=== PATIENT | female | born 1985 | race Caucasian/White ===

== ENCOUNTER 2016-11-27 12:49 | Emergency (ER) | payer BC ==
[~2016-11-27] VITALS: Wt 70.0 kg
[~2016-11-27 12:49] MED LIST: ERYT1OIN6 RIGHT EYE; IBUP-1542 PO; LORA10CA PO; MECL12.574 PO; PREN-29 PO
[2016-11-27] MEDS ORDERED: ACET500C5 PO (14:21)
[2016-11-27] MEDS ORDERED: SODI30SP2 NS (14:21)
--- NOTE | 2016-11-27 14:48 | ERD ---
ER Documentation Chief Complaint Date/Time DATE: 11/27/16 TIME: 14:44 Chief Complaint 4 days ago cough fever and sore throat. no stridor or sob noted HPI Patient is a 31-year-old female who is , with body aches, cough, sore throat and congestion. She states that she has had these symptoms for 4 days. Complains of a productive cough. Tactile fevers at home. She has only been taking Tylenol for her symptoms. States her last normal menstrual period was . She denies any pelvic pain, vaginal bleeding or abdominal pain, nausea , vomiting or diarrhea. She denies headache or dizziness. She denies leg pain or swelling or recent travel. She denies shortness of breath, chest pain or difficulty breathing. She states that multiple people at work have had similar symptoms. Denies recent surgeries. ROS All systems reviewed and are negative except as per history of present illness. Medications Home Meds Active Scripts Sodium Chloride (Saline Nasal [place]) 30 Ml [place], 30 ML NS BID for 14 Days, SPRAY Prov:SIMON PELAYO PA-C 11/27/16 Acetaminophen* (Tylophen*) 500 Mg Capsule, 1 CAP PO Q6H Y for PAIN AND OR ELEVATED TEMP, #20 CAP Prov:SIMON PELAYO PA-C 11/27/16 Ibuprofen* (Motrin*) 600 Mg Tab, 600 MG PO Q6, #30 TAB Prov:RANDY MORRISSEY PA-C 09/09/16 Meclizine Hcl* (Antivert*) 12.5 Mg Tab, 12.5 MG PO Q6H Y for DIZZINESS, #20 TAB Prov:RANDY MORRISSEY PA-C 09/09/16 Loratadine* (Claritin*) 10 Mg Capsule, 10 MG PO DAILY, #20 CAP Prov:MARS GAONA PA-C 06/03/16 Erythromycin (Erythromycin Opth) 3.5 Gm Oint..gm., 1 APPLIC RIGHT EYE QID for 7 Days, EA Prov:MARS GAONA PA-C 06/03/16 Ibuprofen* (Motrin*) 600 Mg Tab, 600 MG PO Q6, #20 TAB Prov:WENDY SAMPSON PA-C 11/25/15 Reported Medications Vit-Fe Fumarate-FA* ([place] Tablet*) 1 Tab Tablet, 1 TAB PO DAILY, TAB 08/22/14 Allergies Allergies: Coded Allergies: No Known Allergy (Verified , 02/12/15) PMhx/Soc History of Surgery: Yes (heart surgery) Anesthesia Reaction: No Hx Neurological Disorder: No Hx Respiratory Disorders: No Hx Cardiac Disorders: No Hx Psychiatric Problems: No Hx Miscellaneous Medical Probl: No Hx Alcohol Use: No Hx Substance Use: No Hx Tobacco Use: No FmHx Family History: No coronary disease, No diabetes, No other Physical Exam Vitals Vital Signs Date Time Temp Pulse Resp B/P Pulse Ox O2 Delivery O2 Flow Rate FiO2 11/27/16 13:03 99.5 89 20 118/68 99 Physical Exam GENERAL: Well-developed, well-nourished female. Appears in mild distress EYES: Pupils are equally reactive bilaterally. EOMs grossly intact. No conjunctival erythema. ENT: Moist mucous membranes. No uvula deviation. No kissing tonsils. No exudates. TM clear with no erythema or drainage. No mastoid tenderness. Nontender to peanut and tragus NECK: Supple. No lymphadenopathy or thyromegaly. No meningismus. negative kernig. negative brudinski. LUNG: Clear to auscultation bilaterally. No rhonchi, wheezing, rales or coarse breath sounds. HEART: Regular rate and rhythm. No murmurs, rubs or gallops. Extremities: Equal pulses bilaterally. No peripheral clubbing, cyanosis or edema. No unilateral leg swelling. NEUROLOGIC: Alert and oriented. Moving all four extremities. 5/5 strength in all extremities. Normal speech. Steady gait. SKIN: Normal color. Warm and dry. No rashes or lesions. Capillary refill < 2 seconds Procedures/MDM ER COURSE: I kept the patient and/or family informed of laboratory and diagnostic imaging results throughout the emergency room course. MEDICAL DECISION MAKING: This is a female who presents with cough, runny nose, sore throat and body aches. Vital signs were reviewed. Patient is afebrile. Patient is not hypoxic. Temperature is 99.5, blood pressure 118/68 with an O2 sat of 99. Patient likely has URI of viral etiology. Low suspicion for pneumonia, PE, pneumothorax, ACS, epiglottitis, obstruction, TB, pertussis, meningitis, sepsis. I do not think a chest x-ray is warranted at this time as patient's lung examination is within normal limits, normal O2 and does not show signs of respiratory distress and is afebrile. Low suspicion for peritonsillar abscess, strep pharyngitis, mononucleosis, dental abscess. DISCHARGE: At this time, patient is stable for discharge and outpatient management with no new complaints during the ER course. Patient was sent home with Tylenol, nasal saline rinses and a note for work.. Patient will be discharged home with instructions to recheck for new or worsening symptoms such as fever, nausea, weakness, LOC and to follow up with primary care in the next 1-2 days. Patient was advised to return to the ER for any new or worsening symptoms. Plan was discussed and patient and/or family understands and agrees. Home instructions were given. Departure Diagnosis: Primary Impression: URI (upper respiratory infection) URI type: unspecified URI Qualified Code: J06.9 - Upper respiratory tract infection, unspecified type Condition: Stable Patient Instructions: Preventing Common Respiratory Infections Additional Instructions: Call your primary care doctor TOMORROW for an appointment during the next 1-2 days.See the doctor sooner or return here if your condition worsens before your appointment time. SIMON PELAYO PA-C Nov 27, 2016 14:48
== END 2016-11-27 14:27 | disposition home or self-care (01) ==
LOC: E/R 12:49
DX: J06.9 Acute upper respiratory infection, unspecified (principal)
CPT/HCPCS: 99283

== ENCOUNTER 2016-12-13 12:34 | Emergency (ER) | payer BC ==
[~2016-12-13] VITALS: Ht 177.8 cm; Wt 82.0 kg
[~2016-12-13 12:34] MED LIST changes: +ACET500C5 PO; +SODI30SP2 NS
[2016-12-13 12:40] VITALS: Ht 177.8 cm; Wt 82.0 kg
[2016-12-13 14:28] LABS: URINE BLOOD (Dip) POC Negative (NEGATIVE)
[2016-12-13 14:34] LABS: BASOPHILS % 0.4 % (0.0-2.0); EOSINOPHILS # 0.2 10^3/ul (0.0-0.5); EOSINOPHILS % 1.5 % (0.0-7.0); HEMATOCRIT 36.7 % (37.0-47.0); HEMOGLOBIN 12.6 g/dl (12.0-16.0); LYMPHOCYTES # 2.1 10^3/ul (0.8-2.9); LYMPHOCYTES % 20.7 % (15.0-51.0); MEAN CORPUSCULAR HEMOGLOBIN 30.8 pg (29.0-33.0); MEAN CORPUSCULAR HGB CONC 34.4 g/dl (32.0-37.0); MEAN CORPUSCULAR VOLUME 89.7 fl (82.0-101.0); MEAN PLATELET VOLUME 10.3 fl (7.4-10.4); MONOCYTE # 0.8 10^3/ul (0.3-0.9); MONOCYTES % 7.9 % (0.0-11.0); NEUTROPHIL # 7.1 10^3/ul (1.6-7.5); NEUTROPHILS % 69.5 % (39.0-77.0); PLATELET COUNT 246 10^3/UL (140-440); RED CELL DISTRIBUTION WIDTH 12.7 % (11.5-14.5); UNCORRECTED WBC 10.2 10^3/ul (4.8-10.8); WHITE BLOOD COUNT 10.2 10^3/ul (4.8-10.8)
[2016-12-13 14:39] LABS: CONDITION 1
--- NOTE | 2016-12-13 15:18 | ERD ---
ER Documentation Chief Complaint Date/Time DATE: 12/13/16 TIME: 15:14 Chief Complaint VAG BLEED TODAY , 8 WEEKS PREG , LMP 10/10/16 HPI This is a 31-year-old female, A2, who is currently and started having vaginal bleeding today. Patient states she is currently 8 weeks with last menstrual period 10/10/2016. Patient states she started having light pink spotting this morning when she wipes. Denies pelvic pain or cramping. No heavy bleeding or clots. Denies dysuria or hematuria. Patient states she is currently on antibiotics for urinary tract infection. Has had one miscarriage in the past and one elective . No fevers or chills. Has not had any complications with delivery. No history of preeclampsia. Patient is unsure of her [employer]'s name. ROS All systems reviewed and are negative except as per history of present illness. Medications Home Meds Active Scripts Sodium Chloride (Saline Nasal [place]) 30 Ml [place], 30 ML NS BID for 14 Days, SPRAY Prov:SIMON PELAYO PA-C 11/27/16 Acetaminophen* (Tylophen*) 500 Mg Capsule, 1 CAP PO Q6H Y for PAIN AND OR ELEVATED TEMP, #20 CAP Prov:SIMON PELAYO PA-C 11/27/16 Ibuprofen* (Motrin*) 600 Mg Tab, 600 MG PO Q6, #30 TAB Prov:RANDY MORRISSEY PA-C 09/09/16 Meclizine Hcl* (Antivert*) 12.5 Mg Tab, 12.5 MG PO Q6H Y for DIZZINESS, #20 TAB Prov:RANDY MORRISSEY PA-C 09/09/16 Loratadine* (Claritin*) 10 Mg Capsule, 10 MG PO DAILY, #20 CAP Prov:MARS GAONA PA-C 06/03/16 Erythromycin (Erythromycin Opth) 3.5 Gm Oint..gm., 1 APPLIC RIGHT EYE QID for 7 Days, EA Prov:MARS GAONA PA-C 06/03/16 Ibuprofen* (Motrin*) 600 Mg Tab, 600 MG PO Q6, #20 TAB Prov:WENDY SAMPSON PA-C 11/25/15 Reported Medications Vit-Fe Fumarate-FA* ([place] Tablet*) 1 Tab Tablet, 1 TAB PO DAILY, TAB 08/22/14 Allergies Allergies: Coded Allergies: No Known Allergy (Verified , 02/12/15) PMhx/Soc Medical and Surgical Hx: pt denies Medical Hx, pt denies Surgical Hx History of Surgery: Yes (heart surgery) Anesthesia Reaction: No Hx Neurological Disorder: No Hx Respiratory Disorders: No Hx Cardiac Disorders: No Hx Psychiatric Problems: No Hx Miscellaneous Medical Probl: No Hx Alcohol Use: No Hx Substance Use: No Hx Tobacco Use: No Smoking Status: Never smoker Physical Exam Vitals Vital Signs Date Time Temp Pulse Resp B/P Pulse Ox O2 Delivery O2 Flow Rate FiO2 12/13/16 12:40 98.1 86 18 131/60 99 Physical Exam Const: Alert, no acute distress Head: Atraumatic Eyes: Normal Conjunctiva ENT: Normal External Ears, Nose and Mouth. Neck: Full range of motion..~ No meningismus. Resp: Clear to auscultation bilaterally Cardio: Regular rate and rhythm, no murmurs Abd: Soft, non tender, non distended. Normal bowel sounds Skin: No petechiae or rashes Back: No midline or flank tenderness Ext: No cyanosis, or edema Neur: Awake and alert Psych: Normal Mood and Affect Result Diagram: 12/13/16 1422 Results 24 hrs Laboratory Tests Test 12/13/16 14:22 12/13/16 14:31 Basophils # 0.010^3/ul Basophils % 0.4% Eosinophils # 0.210^3/ul Eosinophils % 1.5% Hematocrit 36.7% Hemoglobin 12.6g/dl Lymphocytes # 2.110^3/ul Lymphocytes % 20.7% Mean Corpuscular Hemoglobin 30.8pg Mean Corpuscular Hemoglobin Concent 34.4g/dl Mean Corpuscular Volume 89.7fl Mean Platelet Volume 10.3fl Monocytes # 0.810^3/ul Monocytes % 7.9% Neutrophils # 7.110^3/ul Neutrophils % 69.5% Nucleated Red Blood Cells # 0.010^3/ul Nucleated Red Blood Cells % 0.0/100WBC Platelet Count 30091^3/UL Red Blood Count 4.1010^6/ul Red Cell Distribution Width 12.7% White Blood Count 10.210^3/ul Bedside Urine Blood Negative Bedside Urine Glucose (UA) Negative Bedside Urine Ketones (LAB) Negative Bedside Urine Leukocyte Esterase (L Negative Bedside Urine Nitrite (LAB) Negative Bedside Urine Protein (LAB) Negative Bedside Urine pH (LAB) 7.0 Procedures/MDM ED COURSE: The patient was stable throughout ED course. I kept the patient and/or family informed of laboratory and diagnostic imaging results throughout the ED course. Laboratory CBC no significant infection or anemia Beta-hCG Type and Rh factor O positive Urine dip negative Imaging OB ultrasound Patient: JEFFERSON PHILLIPS : 1985 Age: 31 Sex: F MR #: [id number] DOS: 12/13/16 1407 Ordering MD: LAURA WHITING NP Location: [facility] Room/Bed: PROCEDURE: First trimester obstetrical ultrasound. CLINICAL INDICATION: , pelvic pain TECHNIQUE: Transabdominal mason scale and color Doppler ultrasound of the uterus . COMPARISON: OB ultrasound 02/12/2015 FINDINGS: A single intrauterine gestation is present within the uterine fundus. No evidence of extrauterine gestation. Mean sac diameter: 324 cm [place]-rump length: 2.41 cm heart rate: 185 Beats per minute No evidence of subchorionic hemorrhage. Normal appearance right ovary. Left ovary not identified. Free fluid: None. IMPRESSION: Single intrauterine gestation with an estimated gestational age of 9 weeks 1 days by ultrasound criteria. MDM: This is a 31-year-old female presenting to emergency department for vaginal bleeding while . Patient states her last menstrual period was 10/10/2016. Patient states she has had light pink spotting with wiping twice today. No heavy bleeding or clots. Patient is A2. CBC unremarkable for significant anemia or infection. Urine is negative for infection. OB ultrasound reviewed by radiologist shows single intrauterine gestation with an estimated gestation age of 9 weeks 1 day by ultrasound criteria. Patient denies pelvic cramping. Low suspicion for spontaneous , tubo-ovarian abscess, uterine fibroid or pelvic inflammatory disease. Patient is appropriate for outpatient management and instructed to follow-up with [employer] in the next 2-3 days for reassessment. Instructed patient to return to ED for any increased bleeding, high fever, pelvic cramping or any new or worsening symptoms. Patient verbalizes understanding. All questions answered at discharge. Departure Diagnosis: Primary Impression: Vaginal bleeding in patient at less than 20 weeks gestation Condition: Stable JOHANNE,LAURA R. [employer]PER[employer] EDGING Dec 13, 2016 15:18
--- NOTE | 2016-12-13 15:27 | RADRPT ---
PROCEDURE: First trimester obstetrical ultrasound. CLINICAL INDICATION: , pelvic pain TECHNIQUE: Transabdominal mason scale and color Doppler ultrasound of the uterus . COMPARISON: OB ultrasound 02/12/2015 FINDINGS: A single intrauterine gestation is present within the uterine fundus. No evidence of extrauterine gestation. Mean sac diameter: 324 cm [place]-rump length: 2.41 cm heart rate: 185 Beats per minute No evidence of subchorionic hemorrhage. Normal appearance right ovary. Left ovary not identified. Free fluid: None. IMPRESSION: Single intrauterine gestation with an estimated gestational age of 9 weeks 1 days by ultrasound chris oscar. RPTAT: AADD .Zackary Tracy MD, MD Date Time Electronically viewed and signed by .Zackary Tracy MD, on 12/13/2016 15:26 .B/
== END 2016-12-13 15:46 | disposition home or self-care (01) ==
LOC: FTE 12:34
DX: O20.9 Hemorrhage in early pregnancy, unspecified (principal); R10.2 Pelvic and perineal pain; Z3A.09 9 weeks gestation of pregnancy
CPT/HCPCS: 36415; 76801; 81003; 84702; 85025; 86900; 86901; Z7502

== ENCOUNTER 2017-04-26 13:02 | Emergency (ER) | payer BC ==
[~2017-04-26] VITALS: Ht 177.8 cm; Wt 86.0 kg
[2017-04-26 13:09] VITALS: Ht 177.8 cm; Wt 86.0 kg
--- NOTE | 2017-04-26 14:07 | QN ---
Documentation Comment iup 28 weeks URI symptoms vss exam wnl a./p iup 28 weeks to er per OB for vianeyal KELI KERN MD Apr 26, 2017 14:07
[2017-04-26] MEDS ORDERED: ACET500C5 PO (14:36)
[2017-04-26] MEDS ORDERED: AMO500 PO (14:37)
--- NOTE | 2017-04-26 14:42 | ERD ---
ER Documentation Chief Complaint Date/Time DATE: 04/26/17 TIME: 14:38 Chief Complaint sore throat , lt ear pain , 28 weeks preg , cleared by ob triage HPI Patient is a 31-year-old female, 28 weeks , , who presents to the of throat pain and left ear pain. Patient states she has had throat pain now for a week. Patient does report a dry cough. Patient states this morning she woke up with left ear pain. She denies any active bleeding or discharge. Patient denies any trismus. Patient denies any fevers, chills, nausea, vomiting , abdominal pain, vaginal bleeding or excessive vaginal discharge. Patient denies any recent travel. No sick contacts. Patient was cleared by OB team prior to arrival to ED. ROS All systems reviewed and are negative except as per history of present illness. Medications Home Meds Active Scripts Amoxicillin* (Amoxicillin*) 500 Mg Cap, 500 MG PO BID for 10 Days, CAP Prov:RICKIE ZARAGOZA PA-C 04/26/17 Acetaminophen* (Tylophen*) 500 Mg Capsule, 1 CAP PO Q6H Y for PAIN AND OR ELEVATED TEMP, #20 CAP Prov:RICKIE ZARAGOZA PA-C 04/26/17 Reported Medications Vit-Fe Fumarate-FA* ([place] Tablet*) 1 Tab Tablet, 1 TAB PO DAILY, TAB 08/22/14 Discontinued Scripts Sodium Chloride (Saline Nasal [place]) 30 Ml [place], 30 ML NS BID for 14 Days, SPRAY Prov:SIMON PELAYO PA-C 11/27/16 Acetaminophen* (Tylophen*) 500 Mg Capsule, 1 CAP PO Q6H Y for PAIN AND OR ELEVATED TEMP, #20 CAP Prov:SIMON PELAYO PA-C 11/27/16 Ibuprofen* (Motrin*) 600 Mg Tab, 600 MG PO Q6, #30 TAB Prov:RANDY MORRISSEY PA-C 09/09/16 Meclizine Hcl* (Antivert*) 12.5 Mg Tab, 12.5 MG PO Q6H Y for DIZZINESS, #20 TAB Prov:RANDY MORRISSEY PA-C 09/09/16 Loratadine* (Claritin*) 10 Mg Capsule, 10 MG PO DAILY, #20 CAP Prov:MARS GAONA PA-C 06/03/16 Erythromycin (Erythromycin Opth) 3.5 Gm Oint..gm., 1 APPLIC RIGHT EYE QID for 7 Days, EA Prov:CANDELARIADUCOWEN Snehal MUNOZ 06/03/16 Ibuprofen* (Motrin*) 600 Mg Tab, 600 MG PO Q6, #20 TAB Prov:WENDY SAMPSON TAMMY 11/25/15 Allergies Allergies: Coded Allergies: No Known Allergy (Verified , 02/12/15) PMhx/Soc Medical and Surgical Hx: pt denies Medical Hx, pt denies Surgical Hx History of Surgery: No Anesthesia Reaction: No Hx Neurological Disorder: No Hx Respiratory Disorders: No Hx Cardiac Disorders: No Hx Psychiatric Problems: No Hx Miscellaneous Medical Probl: No Hx Alcohol Use: No Hx Substance Use: No Hx Tobacco Use: No FmHx Family History: No diabetes Physical Exam Vitals Vital Signs Date Time Temp Pulse Resp B/P Pulse Ox O2 Delivery O2 Flow Rate FiO2 04/26/17 13:09 98.6 110 18 131/77 98 Physical Exam GENERAL: Well-developed, well-nourished [place]. Appears in no acute distress. Speaking in full sentences HEAD: Normocephalic, atraumatic. No deformities or ecchymosis. EYE: Pupils equal, round, and reactive to light. EOMs intact. No conjunctival erythema. No eye discharge. ENT: External ear without any masses or tenderness. Auditory canals clear bilaterally. Left tympanic membrane appears erythematous and bulging. Right tympanic membrane appears normal, nonerythematous, nonbulging. Nasal mucosa pink with no discharge. Oropharynx is edematous without any tonsillar erythema or exudates. No uvula deviation. No kissing tonsils. Nontender palpation of bilateral mastoid processes. NECK: Supple. No meningismus. Normal ROM of the neck. LUNG: Clear to auscultation bilaterally. No rhonchi, wheezing, rales or coarse breath sounds. HEART: Regular rate and rhythm. No murmurs, rubs or gallops. BACK: No midline tenderness. EXTREMITES: Equal pulses bilaterally. No peripheral clubbing, cyanosis or edema. No unilateral leg swelling. NEUROLOGIC: Alert and oriented to person, place and time. Moving all four extremities. 5/5 strength in all extremities. Normal speech. Steady gait. SKIN: Normal color. Warm and dry. No rashes or lesions. Procedures/MDM MEDICAL DECISION MAKING: This is a 31-year-old female who presents to the ED with concerns of throat pain, ear pain and a cough. Patient was cleared by OB team prior to arrival to the ED. Vital signs were reviewed. Patient was afebrile. Patient was not hypoxic. ENT exam revealed findings consistent with left acute otitis media. Exam was normal. Given these findings, the patient's presentation is most consistent with acute otitis media and viral URI. I have a much lower clinical concern for pneumonia, meningitis, sinusitis, mastoiditis, strep pharyngitis, epiglottitis or peritonsillar abscess. PRESCRIPTIONS: Amoxicillin, Tylenol DISCHARGE: At this time, patient is stable for discharge and outpatient management. Supportive therapies such as OTC throat lozenges, salt water gurgles, popsicles and jello discussed. I have instructed the patient to follow-up with his/her primary care physician in 1-2 days. I have instructed the patient to promptly return to the ER for any new or worsening symptoms including increased pain, swelling, fever, nausea, vomiting, weakness or difficulty breathing. The patient and/or family expressed understanding of and agreement with this plan. All questions were answered. Home care instructions were provided. Departure Diagnosis: Primary Impression: Acute otitis media Otitis media type: unspecified Laterality: unspecified laterality Qualified Code: H66.90 - Acute otitis media, unspecified laterality, unspecified otitis media type Additional Impression: URI (upper respiratory infection) URI type: unspecified URI Qualified Code: J06.9 - Upper respiratory tract infection, unspecified type Condition: Stable Patient Instructions: Otitis Media, Abx Tx (Adult) Additional Instructions: Call your primary care doctor TOMORROW for an appointment during the next 1-2 days.See the doctor sooner or return here if your condition worsens before your appointment time. RICKIE ZARAGOZA PA-C Apr 26, 2017 14:41
== END 2017-04-26 15:10 | disposition home or self-care (01) ==
LOC: FTE 13:02
DX: O99.513 Diseases of the respiratory system complicating pregnancy, third trimester (principal); H66.92 Otitis media, unspecified, left ear; J06.9 Acute upper respiratory infection, unspecified; O99.89 Other specified diseases and conditions complicating pregnancy, childbirth and the puerperium; Z3A.28 28 weeks gestation of pregnancy
CPT/HCPCS: 99283

== ENCOUNTER 2017-05-23 17:05 | Outpatient (CLI) | payer BC ==
[~2017-05-23] VITALS: Ht 177.8 cm; Wt 86.9 kg
[~2017-05-23 17:05] MED LIST changes: +AMO500 PO; -ERYT1OIN6 RIGHT EYE; -IBUP-1542 PO; -LORA10CA PO; -MECL12.574 PO; -SODI30SP2 NS
[2017-05-23 17:17] VITALS: BP 129/71; PULSE 95; Ht 177.8 cm; Wt 86.9 kg
--- NOTE | 2017-05-23 19:03 | RADRPT ---
PROCEDURE: Obstetrical ultrasound for biophysical profile CLINICAL INDICATION: Biophysical profile. . TECHNIQUE: Obstetrical ultrasound of the uterus for biophysical profile. Transabdominal views are obtained. COMPARISON: 12/13/2016 FINDINGS: Single intrauterine gestation. Presentation: Cephalic. Placenta: Posterior No evidence of placental abruption. No evidence of placenta previa. breathing movement = 2/2 tone = 2/2 motion = 2/2 ELÍAS = 2/2 ELÍAS = 9.7 cm heart rate: 138 beats per minute IMPRESSION: Single intrauterine gestation. Biophysical profile 06/01 RPTAT: AADD .Zackary Tracy MD, MD Date Time Electronically viewed and signed by .Zackary Tracy MD, on 05/23/2017 19:02 .B/
--- NOTE | 2017-05-23 19:40 | PN ---
Triage Information Date/Time May 23, 2017 Weeks of Gestation 32w 3d : 5 Para: 4 Diabetes: none Hypertention: none Additional information Came in after having a single episode of upper abdominal pain that radiated to the back. There have been no recurrences. No bleeding or leaking. + FM. PMHx: none. PSHx: C/S x 1. POBHx: x 3. C/S x 1. NKDA. Objective Vital Signs Date Time Temp Pulse Resp B/P Pulse Ox O2 Delivery O2 Flow Rate FiO2 05/23/17 17:17 98.2 95 129/71 Room Air Heart Rate Comments Baseline 130-140's with accels to 160 bpm. No decels. No UC's. Contractions: None Results/Medications Imaging Results BPP 8/8. ELÍAS 9.7 cm. VTX. Assessment/Plan A: IUP at 32w 3. False labor. P: Pt reassured that she probably had a Lionel-Garg contraction as they can be very strong, although they usually aren't. D/C home. Maintain hydration. JOSE HARTLEY MD May 23, 2017 19:40
--- NOTE | 2017-05-23 20:12 | TRIAGE ---
OB Triage Datetime Report Generated by CPN: 05/23/2017 20:12 Datetime: 05/23/2017 19:21 Stage of : OB Triage Time of Arrival: 05/23/2017 16:59 EGA: 32.3 Arrived From: Home Chief Complaint: Abdominal pain x 1 at home Movement: Present Contractions: Occasional Rupture of Membranes: Denies Vaginal Bleeding: None Vaginal Discharge: Denies Recent Sexual Intercouse: Denies Abdominal Trauma: Not Applicable Patient Complaints: Other Time Provider Notified: 05/23/2017 17:48 Provider Notified: reiche Initial Plan: bpp Labor Evaluation Frequency: 0 Monitor Mode: External Resting Tone [place]: Relaxed Contraction Comments: Pt denies feeling cramping, ucs. Abdomen remains soft to palpation Heart Rate FHR Baseline Rate: 140 Monitor Mode: External US Variability: Moderate 6-25 bpm Accelerations: 15X15 Decelerations: Variable Category: Category II Comments: Appropriate for GA Datetime: 05/23/2017 18:59 Labor Evaluation Frequency: 0 Monitor Mode: External Duration (sec)2399: 0 Pattern: Normal: <= 5 Contractions in 10 Minutes Resting Tone [place]: Relaxed Heart Rate FHR Baseline Rate: 135 Monitor Mode: External US FHR Baseline Changes: No Baseline Change Variability: Moderate 6-25 bpm Accelerations: 15X15 Decelerations: None Category: Category I Datetime: 05/23/2017 17:55 Labor Evaluation Frequency: 0 Monitor Mode: External Duration (sec)2399: 0 Pattern: Normal: <= 5 Contractions in 10 Minutes Resting Tone [place]: Relaxed Heart Rate FHR Baseline Rate: 130 Monitor Mode: External US FHR Baseline Changes: No Baseline Change Variability: Moderate 6-25 bpm Accelerations: 15X15 Decelerations: None Category: Category I Datetime: 05/23/2017 17:14 Assessment Type: Triage Maternal Assessment Level of Consciousness: Fully Conscious DTR's/Clonus: DTRs 2+; No Clonus Headache: Denies Blurred Vision: No Respiratory Effort: Unlabored; Regular Rhythm; Equal Expansion Breath Sounds, Left: Clear and Equal Breath Sounds, Right: Clear and Equal Nausea/Vomiting: Denies RUQ Epigastric Pain: Denies Lower Extremities Edema: None Degree: None Upper Extremities Edema: None Degree: None Facial Edema: None Fall Risk Assessment History of Falling: (0) No Secondary Diagnosis: (0) No Ambulatory Aid: (0) Bedrest/Nurse Assist IV Therapy: (0) No Gait: (0) Normal/Bedrest/Immobile Mental Status: (0) Oriented to Own Ability Fall Score: 0 Fall Risk Score Definition: No Risk: No action required Datetime: 04/26/2017 12:52 Time of Arrival: 05/23/2017 16:09 EGA: 32.3 Chief Complaint: ABDOMINAL PAIN GOING TOWARD BACK X1 Movement: Present Contractions: Denies/Absent Rupture of Membranes: Denies Vaginal Bleeding: None Vaginal Discharge: Denies Recent Sexual Intercouse: Denies Abdominal Trauma: Not Applicable Patient Complaints: Other Time Provider Notified: 05/23/2017 17:48 Provider Notified: ODILIA Initial Plan: NST Datetime: 04/26/2017 12:34 Stage of : OB Triage Datetime: 04/26/2017 12:03 Stage of : OB Triage Assessment Type: Triage EGA: 28.4 Maternal Assessment Level of Consciousness: Fully Conscious DTR's/Clonus: DTRs 2+; No Clonus Headache: Denies Blurred Vision: No Respiratory Effort: Unlabored; Regular Rhythm; Equal Expansion Breath Sounds, Left: Clear and Equal Breath Sounds, Right: Clear and Equal Nausea/Vomiting: Denies RUQ Epigastric Pain: Denies Facial Edema: None Temperature Route: Axillary Fall Risk Assessment History of Falling: (0) No Secondary Diagnosis: (0) No Ambulatory Aid: (0) Bedrest/Nurse Assist IV Therapy: (0) No Gait: (0) Normal/Bedrest/Immobile Mental Status: (0) Oriented to Own Ability Fall Score: 0 Fall Risk Score Definition: No Risk: No action required Labor Evaluation Frequency: 0 Monitor Mode: External Resting Tone [place]: Relaxed Heart Rate FHR Baseline Rate: 135 Monitor Mode: External US Variability: Moderate 6-25 bpm Decelerations: None Pain Assessment Pain Scale: 4 (Annotations: THROAT/EAR) Pain Presence: Constant Pain Type: Ache Pain Goal: 3 Pain Relief Measures: Comfort Measures Datetime: 04/26/2017 12:02 Time of Arrival: 04/26/2017 11:35 Arrived By: Ambulatory Chief Complaint: C/O EAR/THROAT INFECTION Movement: Present Contractions: Denies/Absent Rupture of Membranes: Denies Vaginal Bleeding: None Vaginal Discharge: Denies Recent Sexual Intercouse: Denies Abdominal Trauma: Not Applicable Patient Complaints: None Time Provider Notified: 04/26/2017 12:30 Provider Notified: CONCHA Initial Plan: MONITOR
== END 2017-05-23 19:40 | disposition home or self-care (01) ==
LOC: OBT 17:05 → L-D 17:07 → OBT 19:40
PROVIDERS: ATTEND Obstetrics & Gynecology
DX: O47.03 False labor before 37 completed weeks of gestation, third trimester (principal); Z3A.32 32 weeks gestation of pregnancy
CPT/HCPCS: 76818; Z7500; G0463

== ENCOUNTER 2017-06-10 15:44 | Outpatient (CLI) | payer BC ==
[~2017-06-10] VITALS: Ht 172.7 cm; Wt 92.8 kg
[2017-06-10 16:17] VITALS: Ht 172.7 cm; Wt 92.8 kg
[2017-06-10] MEDS ORDERED: FER325 PO (16:17)
[2017-06-10 16:18] VITALS: BP 134/75; PULSE 76; RESP 18
[2017-06-10 16:53] LABS: ADD UMIC YES; UR ASCORBIC ACID NEGATIVE (NEGATIVE); UR BACTERIA FEW /HPF (NONE SEEN); UR BILIRUBIN (Dip) NEGATIVE (NEGATIVE); UR BLOOD (Dip) 1+ mg/dL (NEGATIVE); UR CLARITY CLEAR (CLEAR); UR COLOR STRAW (YELLOW); UR GLUCOSE (Dip) NEGATIVE (NEGATIVE); UR KETONES (Dip) NEGATIVE (NEGATIVE); UR LEUKOCYTE ESTERASE (Dip) 1+ Leu/ul (NEGATIVE); UR NITRITE (Dip) NEGATIVE (NEGATIVE); UR RBC 1 /HPF (0-5); UR SPECIFIC GRAVITY (Dip) 1.005 (1.003-1.030); UR TOTAL PROTEIN (Dip) NEGATIVE (NEGATIVE); UR UROBILINOGEN (Dip) NEGATIVE (NEGATIVE)
--- NOTE | 2017-06-10 16:55 | RADRPT ---
PROCEDURE: US OB biophysical profile. CLINICAL INDICATION: decreased movements, hypertension TECHNIQUE: Multiple sonographic images of the pelvis were obtained. The images were reviewed on a PACS workstation. COMPARISON: 05/23/2017 FINDINGS: There is a single viable intrauterine gestation. Cardiac activity is present with 137 beats per min [place]. There is a vertex presentation. The placenta is right lateral. There is no evidence of placental abruption. There is a normal amount of amniotic fluid with an ELÍAS = 13.5 cm. Biophysical profile: movement 2/2 tone 2/2. breathing 2/2 ELÍAS 2/2 Total 06/01 RPTAT: AA . IMPRESSION: Normal biophysical profile. . .Issac Enriquez MD, MD Date Time Electronically viewed and signed by .Issac Enriquez MD, MD on 06/10/2017 16:55 .S/
[2017-06-10 17:39] LABS: BASOPHILS % 0.4 % (0.0-2.0); EOSINOPHILS # 0.2 10^3/ul (0.0-0.5); EOSINOPHILS % 2.2 % (0.0-7.0); HEMATOCRIT 33.8 % (37.0-47.0); HEMOGLOBIN 11.5 g/dl (12.0-16.0); LYMPHOCYTES # 1.9 10^3/ul (0.8-2.9); LYMPHOCYTES % 20.4 % (15.0-51.0); MEAN CORPUSCULAR HEMOGLOBIN 31.8 pg (29.0-33.0); MEAN CORPUSCULAR VOLUME 93.4 fl (82.0-101.0); MEAN PLATELET VOLUME 11.7 fl (7.4-10.4); MONOCYTE # 0.8 10^3/ul (0.3-0.9); MONOCYTES % 8.6 % (0.0-11.0); NEUTROPHILS % 66.9 % (39.0-77.0); PLATELET COUNT 177 10^3/UL (140-415); RED BLOOD COUNT 3.62 10^6/ul (4.20-5.40); RED CELL DISTRIBUTION WIDTH 13.4 % (11.5-14.5); WHITE BLOOD COUNT 9.1 10^3/ul (4.8-10.8)
[2017-06-10 18:13] LABS: INR 1.02; PROTIME 13.4 Sec (12.2-14.2)
[2017-06-10 18:14] LABS: PARTIAL THROMBOPLASTIN TIME 28.1 Sec (25.0-35.0)
[2017-06-10 18:17] LABS: ALBUMIN 3.3 g/dl (3.3-4.9); ALBUMIN/GLOBULIN RATIO 1.1; BILIRUBIN,INDIRECT 0.1 mg/dl (0-1.1); BILIRUBIN,TOTAL 0.1 mg/dl (0.2-1.3); CREATININE 0.48 mg/dl (0.44-1.00); POTASSIUM 3.5 mmol/L (3.5-5.1); TOTAL PROTEIN 6.3 g/dl (6.1-8.1); URIC ACID 3.6 mg/dl (3.1-7.9)
--- NOTE | 2017-06-10 20:21 | PN ---
Triage Information Date/Time 06/10/172009 Reason for visit: R/O induced hypertension Weeks of Gestation 35w5d /Para A2 Diabetes: none Hypertention: induced Objective Vital Signs Date Time Temp Pulse Resp B/P Pulse Ox O2 Delivery O2 Flow Rate FiO2 06/10/17 16:18 98.4 76 18 134/75 97 Room Air Heart Rate: 130's Contractions: None Exam multiple BP measurement 120/130 ,60/70's Results/Medications Result Diagram: 06/10/17 1715 06/10/17 1715 Results 24 hrs Laboratory Tests Test 06/10/17 16:10 06/10/17 17:15 Urine Color STRAW Urine Clarity CLEAR Urine pH 7.0 Urine Specific [place] 1.005 Urine Ketones NEGATIVE Urine Nitrite NEGATIVE Urine Bilirubin NEGATIVE Urine Urobilinogen NEGATIVE Urine Leukocyte Esterase 1+ H Urine Microscopic RBC 1 Urine Microscopic WBC 2 Urine Bacteria FEW A Urine Hemoglobin 1+ H Urine Glucose NEGATIVE Urine Total Protein NEGATIVE White Blood Count 9.1 Red Blood Count 3.62 L Hemoglobin 11.5 L Hematocrit 33.8 L Mean Corpuscular Volume 93.4 Mean Corpuscular Hemoglobin 31.8 Mean Corpuscular Hemoglobin Concent 34.0 Red Cell Distribution Width 13.4 Platelet Count 177 Mean Platelet Volume 11.7 H Neutrophils % 66.9 Lymphocytes % 20.4 Monocytes % 8.6 Eosinophils % 2.2 Basophils % 0.4 Nucleated Red Blood Cells % 0.0 Neutrophils # (Manual) 6 Lymphocytes # 1.9 Monocytes # 0.8 Eosinophils # 0.2 Basophils # 0.0 Nucleated Red Blood Cells # 0.0 Prothrombin Time 13.4 Prothrombin Time Ratio 1.0 INR International Normalized Ratio 1.02 Activated Partial Thromboplast Time 28.1 Fibrinogen 354.0 Sodium Level 135 Potassium Level 3.5 Chloride Level 105 Carbon Dioxide Level 20 L Anion Gap 14 Blood Urea Nitrogen 7 Creatinine 0.48 Glucose Level 77 Uric Acid 3.6 Calcium Level 9.0 Total Bilirubin 0.1 L Direct Bilirubin 0.00 Indirect Bilirubin 0.1 Aspartate Amino Transf (AST/SGOT) 19 Alanine Aminotransferase (ALT/SGPT) 31 Alkaline Phosphatase 144 H Total Protein 6.3 Albumin 3.3 Globulin 3.00 Albumin/Globulin Ratio 1.10 Imaging Results BPP 06/01 ELÍAS 13.5 Disposition: Discharge Assessment/Plan IUP 35w5d ruled out PIH P discharge home and f/u at her OB urine culture sent MATHEW HENSON MD Jun 10, 2017 20:21
== END 2017-06-10 19:29 | disposition home or self-care (01) ==
LOC: OBT 15:44 → L-D 15:44 → OBT 19:29
PROVIDERS: ATTEND Obstetrics & Gynecology
DX: O36.8130 Decreased fetal movements, third trimester, not applicable or unspecified (principal); Z3A.35 35 weeks gestation of pregnancy; O16.3 Unspecified maternal hypertension, third trimester
CPT/HCPCS: 76818; 80053; 81001; 84560; 85025; 85384; 85610; 85730; Z7500; G0463

== ENCOUNTER 2017-06-18 18:06 | Outpatient (CLI) | payer BC ==
[~2017-06-18] VITALS: Ht 175.3 cm; Wt 93.6 kg
[~2017-06-18 18:06] MED LIST changes: +ERYT1OIN6 RIGHT EYE; +FER325 PO; +IBUP-1542 PO; +LORA10CA PO; +MECL12.574 PO; +PREN1TAB49; +PREN1TAB49 PO; +PRENAT PO; +SODI30SP2 NS
[2017-06-18 18:19] VITALS: BP 138/65; PULSE 77; RESP 20
[2017-06-18 18:23] VITALS: Ht 175.3 cm; Wt 93.6 kg
--- NOTE | 2017-06-18 20:34 | RADRPT ---
PROCEDURE: US DVT. CLINICAL INDICATION: Bilateral lower extremity pain and swelling. TECHNIQUE: Multiple longitudinal and transverse images of the bilateral lower extremity veins were obtained with mason scale and color Doppler imaging. 2D grayscale measurements with compression, co lewis Doppler flow, and augmentation was performed. The calf veins were interrogated as well. COMPARISON: No prior studies are available for comparison. FINDINGS: The bilateral common femoral, superficial femoral and popliteal veins are normally compressible thro ughout. Color flow demonstrates normal filling of the vessel. Normal waveforms are visualized and there is normal response to augmentation. The calf veins are visualized and are equally unremarkabl e. IMPRESSION: 1. No evidence of a deep vein thrombosis involving either lower extremity. RPTAT: HFN .Anthony Juarez MD, MD Date Time Electronically viewed and signed by .Anthony Juarez MD, MD on 06/18/2017 20:33 .N/
[2017-06-18 20:55] LABS: WHITE BLOOD COUNT 9.8 10^3/ul (4.8-10.8)
[2017-06-18 20:56] LABS: BASOPHILS % 0.4 % (0.0-2.0); EOSINOPHILS # 0.2 10^3/ul (0.0-0.5); EOSINOPHILS % 1.9 % (0.0-7.0); HEMATOCRIT 32.9 % (37.0-47.0); HEMOGLOBIN 11.1 g/dl (12.0-16.0); LYMPHOCYTES # 2.1 10^3/ul (0.8-2.9); LYMPHOCYTES % 21.1 % (15.0-51.0); MEAN CORPUSCULAR HEMOGLOBIN 31.1 pg (29.0-33.0); MEAN CORPUSCULAR HGB CONC 33.7 g/dl (32.0-37.0); MEAN CORPUSCULAR VOLUME 92.2 fl (82.0-101.0); MEAN PLATELET VOLUME 11.2 fl (7.4-10.4); MONOCYTE # 0.8 10^3/ul (0.3-0.9); MONOCYTES % 8.2 % (0.0-11.0); NEUTROPHILS % 66.5 % (39.0-77.0); PLATELET COUNT 182 10^3/UL (140-415); RED BLOOD COUNT 3.57 10^6/ul (4.20-5.40); RED CELL DISTRIBUTION WIDTH 13.4 % (11.5-14.5)
--- NOTE | 2017-06-18 21:05 | RADRPT ---
PROCEDURE: US upper extremity Venous Doppler study. CLINICAL INDICATION: Swelling TECHNIQUE: Multiple sonographic images of the bilateral upper extremity deep venous system was obt ained utilizing grayscale, color-flow, compressive sonography and doppler imaging with augmentation. The images were reviewed on a PACS workstation. COMPARISON: None. FINDINGS: There are normal venous wave forms demonstrated within the bilateral internal jugular, subclavian, a nd axillary veins. The bilateral brachial, basilic, and cephalic veins demonstrate normal venous fl ow and compressibility. The radial and ulnar veins are patent. IMPRESSION: No sonographic evidence for deep venous thrombosis within the upper extremities RPTAT: HIKT .Luis Carlos Pulido MD, MD Date Time Electronically viewed and signed by .Luis Carlos Pulido MD, MD on 06/18/2017 21:05 .T/
[2017-06-18 21:10] LABS: PARTIAL THROMBOPLASTIN TIME 27.8 Sec (25.0-35.0); PROTIME 13.2 Sec (12.2-14.2)
[2017-06-18 21:12] LABS: ALBUMIN 3.1 g/dl (3.3-4.9); ALBUMIN/GLOBULIN RATIO 0.93; BILIRUBIN,INDIRECT 0.1 mg/dl (0-1.1); BILIRUBIN,TOTAL 0.1 mg/dl (0.2-1.3); CALCIUM 8.8 mg/dl (8.4-10.2); CREATININE 0.52 mg/dl (0.44-1.00); POTASSIUM 3.5 mmol/L (3.5-5.1); TOTAL PROTEIN 6.4 g/dl (6.1-8.1); URIC ACID 3.7 mg/dl (3.1-7.9)
[2017-06-18 21:12] LABS: ADD UMIC NO; UR ASCORBIC ACID NEGATIVE (NEGATIVE); UR BACTERIA FEW /HPF (NONE SEEN); UR BILIRUBIN (Dip) NEGATIVE (NEGATIVE); UR BLOOD (Dip) NEGATIVE (NEGATIVE); UR CLARITY SLIGHTLY CLOUDY (CLEAR); UR COLOR YELLOW (YELLOW); UR GLUCOSE (Dip) NEGATIVE (NEGATIVE); UR KETONES (Dip) NEGATIVE (NEGATIVE); UR LEUKOCYTE ESTERASE (Dip) NEGATIVE Leu/ul (NEGATIVE); UR NITRITE (Dip) NEGATIVE (NEGATIVE); UR RBC 1 /HPF (0-5); UR SPECIFIC GRAVITY (Dip) 1.013 (1.003-1.030); UR SQUAMOUS EPITHELIAL CELL FEW /HPF (FEW); UR TOTAL PROTEIN (Dip) NEGATIVE (NEGATIVE); UR UROBILINOGEN (Dip) NEGATIVE (NEGATIVE)
--- NOTE | 2017-06-18 21:47 | QN ---
Documentation Comment iup 36 weeks co of leg pain vss exam wnl us wnl labs wnl a/p iup 36 weeks false labor dvt ruled out [facility] KELI KERN MD Jun 18, 2017 21:47
[2017-06-30] MEDS ORDERED: AMO500 PO (11:44)
== END 2017-06-18 21:57 | disposition home or self-care (01) ==
LOC: OBT 18:06 → L-D 18:07 → OBT 21:57
PROVIDERS: ATTEND Obstetrics & Gynecology
DX: O26.893 Other specified pregnancy related conditions, third trimester (principal); O47.03 False labor before 37 completed weeks of gestation, third trimester; Z3A.36 36 weeks gestation of pregnancy; M79.669 Pain in unspecified lower leg
CPT/HCPCS: 80053; 81001; 81003; 84560; 85025; 85384; 85610; 85730; 93970; Z7500; G0463

== ENCOUNTER 2017-06-23 12:03 | Emergency (ER) | payer BC ==
[~2017-06-23] VITALS: Ht 175.3 cm; Wt 93.0 kg
[~2017-06-23 12:03] MED LIST changes: -ACET500C5 PO; -AMO500 PO; -ERYT1OIN6 RIGHT EYE; -IBUP-1542 PO; -LORA10CA PO; -MECL12.574 PO; -PREN1TAB49; -PREN1TAB49 PO; -PRENAT PO; -SODI30SP2 NS
[2017-06-23 12:05] VITALS: Ht 175.3 cm; Wt 93.0 kg
[2017-06-23] MEDS ORDERED: HC30CR25 TOP (14:20)
[2017-06-23] MEDS ORDERED: BEN50 PO (14:20)
[2017-06-23] MEDS ORDERED: LIDO30CR3 TP (14:23)
--- NOTE | 2017-06-23 15:10 | ERD ---
ER Documentation Chief Complaint Date/Time DATE: 06/23/17 TIME: 15:04 Chief Complaint RASH X 4 DAYS HPI 32 yr old female complaining of rash to bilateral lower legs after a visit to [facility] this last weekend. Patient is 38 weeks and has used hydrocortisone cream on sites with no alleviation. No fevers. No purulence or bleeding. has similar rash after trip to . No leg swelling. No vomiting or abdominal pain. ROS All systems reviewed and are negative except as per history of present illness. Medications Home Meds Active Scripts Lidocaine (Lmx 5) 30 Gm Cream.gm., 30 GM TP DAILY, #1 Prov:RANDY MORRISSEY PA-C 06/23/17 Reported Medications Ferrous Sulfate* (Ferrous Sulfate*) 325 Mg Tabec, 325 MG PO DAILY, TAB 06/10/17 Vit-Fe Fumarate-FA* ([place] Tablet*) 1 Tab Tablet, 1 TAB PO DAILY, TAB 08/22/14 Allergies Allergies: Coded Allergies: No Known Allergy (Verified , 06/23/17) PMhx/Soc Medical and Surgical Hx: pt denies Medical Hx, pt denies Surgical Hx History of Surgery: No Anesthesia Reaction: No Hx Neurological Disorder: No Hx Respiratory Disorders: No Hx Cardiac Disorders: No Hx Psychiatric Problems: No Hx Miscellaneous Medical Probl: No Hx Alcohol Use: No Hx Substance Use: No Hx Tobacco Use: No Smoking Status: Never smoker Physical Exam Vitals Vital Signs Date Time Temp Pulse Resp B/P Pulse Ox O2 Delivery O2 Flow Rate FiO2 06/23/17 12:05 98.2 87 18 148/72 97 Physical Exam GENERAL: The patient is well-appearing, well-nourished, in no acute distress CHEST: Clear to auscultation bilaterally. There are no rales, wheezes or rhonchi. HEART: Regular rate and rhythm. No murmurs, clicks, rubs or gallops. No S3 or S4. EXTREMITIES: Equal pulses bilaterally. There is no peripheral clubbing, cyanosis or edema. No focal swelling or erythema. Full range of motion. Grossly neurovascularly intact. SKIN: Small erythematous sites around ankles. no pustules. No foreign body. No parasites. Procedures/MDM MDM: I have low suspicion for bacterial or parasitic infection. Patient likely sustained bug bites while she was in [place]. Patient is limited with what medication she can use while so I recommended using LMX cream and ice cubes to numb the irritation. I have low suspicion for deep space infection. Departure Diagnosis: Primary Impression: Rash Condition: Stable Patient Instructions: Insect Bite Referrals: AVA PURCELL MD (PCP) Additional Instructions: FOLLOW UP WITH YOUR PRIMARY CARE PHYSICIAN TOMORROW.Return to this facility if you are not improving as expected. RANDY MORRISSEY PA-C Jun 23, 2017 15:10
[2017-06-30] MEDS ORDERED: AMO500 PO (11:44)
== END 2017-06-23 14:42 | disposition home or self-care (01) ==
LOC: FTE 12:03
DX: O99.89 Other specified diseases and conditions complicating pregnancy, childbirth and the puerperium (principal); R21 Rash and other nonspecific skin eruption; Z3A.38 38 weeks gestation of pregnancy
CPT/HCPCS: 99283

== ENCOUNTER 2017-06-24 15:14 | Outpatient (CLI) | payer BC ==
[~2017-06-24] VITALS: Ht 175.3 cm; Wt 92.7 kg
[~2017-06-24 15:14] MED LIST changes: +LIDO30CR3 TP
--- NOTE | 2017-06-24 15:56 | RADRPT ---
PROCEDURE: OB ultrasound for biophysical profile CLINICAL INDICATION: Hypertension TECHNIQUE: Multiple sonographic images of the pelvis were obtained. Transabdominal view of the gr avid uterus are available for review. The images were reviewed on a PACS workstation. COMPARISON: OB ultrasound 06/10/2017 FINDINGS: breathing movement = 2/2 tone = 2/2 motion = 2/2 ELÍAS = 2/2 ELÍAS = 10.47 cm Single live intrauterine with cardiac activity. heart rate equals 141 beats p er minute. Presentation is cephalic. The placenta is right lateral, grade 1. IMPRESSION: 1. Single viable intrauterine gestation. 2. Biophysical profile = 8. 3. ELÍAS = 10.47 cm. RPTAT: KK .Fredrick Villela MD, MD Date Time Electronically viewed and signed by .Fredrick Villela MD, MD on 06/24/2017 15:56 .B/
[2017-06-24 16:03] VITALS: Ht 175.3 cm; Wt 92.7 kg
[2017-06-24 16:04] VITALS: BP 120/61; PULSE 83
--- NOTE | 2017-06-24 18:33 | CONS ---
Date/Time of Note Date/Time of Note DATE: 06/24/17 TIME: 18:26 Consultation Date/Type/Reason Admit Date/Time June 24, 2017 OB triage consult Hx of Present Illness This patient is a 32 years old 7 para 4 , spontaneous 1 induced 1, with estimated date of confinement of July 15 which makes her 37 weeks and 0 days now. She came to OB clinic to be checked and workup for what is called elevated alkaline phosphatase. On examination well-developed well-nourished near term lady. In no acute distress. Her general vital signs are a 60 normal with the blood pressure of 120/61 pulse rate 83,, respiration 18, temperature 99.2. Constitutional: No chills, No diaphoresis, No disoriented, No febrile, No improved, No no complaints, No other, No poor po, No requiring IVF, No requiring O2 Eyes: No discharge, No no complaints, No other, No pain, No redness, No visual change ENT: No bleeding, No congestion, No discharge, No dysphagia, No no complaints, No other, No pain, No sore throat Respiratory: No cough, No no complaints, No other, No pain, No pleuritic pain, No shortness of breath, No sputum, No wheezing Cardiovascular: No chest pain, No edema, No lightheadedness, No no complaints, No orthopenea, No other, No palpitations, No paroxysmal nocturnal dyspnea Gastrointestinal: No blood, No constipation, No decreased appetite, No diarrhea , No flatus, No nausea, No no complaints, No other, No pain, No passing stool, No vomiting Genitourinary: other (Pelvic examination was not performed due to the fact that patient did not have any significant contractions), No bleeding, No discharge, No dysuria, No flank pain, No hematuria, No no complaints Musculoskeletal: No back pain, No bone/joint pain, No neck pain, No no complaints, No other, No restricted range of motion, No swelling Skin: No bruising, No erythema, No laceration, No no complaints, No other, No pruritis, No rash, No skin lesions Neurologic: other (Her knee-jerk reflex were normal), No confusion, No dizziness, No focal-weakness, No headache, No no complaints , No seizure, No syncope Endocrine: No dry skin, No no complaints, No other, No polydypsia, No polyuria , No temp intolerance Psychological: No anxiety, No confusion, No depression, No nl mood/affect, No no complaints, No other, No suicidal Additional Comments On ultrasound study that we have done report was single live intrauterine with cardiac activity the rate of 1 41 bpm in cephalic presentation placenta was right lateral and grade 1 her biophysical profile was reported 8.8 and and the ELÍAS of 10.47 cm. Disposition: With these normal finding patient was discharged home, to be followed in her physician's clinic and to return to the hospital any case of emergency or any adverse process of a of the Social History Smoking Status: Never smoker Exam/Review of Systems Vital Signs Vitals Vital Signs Date Time Temp Pulse Resp B/P Pulse Ox O2 Delivery O2 Flow Rate FiO2 06/24/17 16:04 99.2 83 120/61 LUCIAN GAYTAN MD Jun 24, 2017 18:33
--- NOTE | 2017-06-24 19:00 | TRIAGE ---
OB Triage Datetime Report Generated by CPN: 06/24/2017 19:00 Datetime: 06/24/2017 17:59 Stage of : OB Triage Datetime: 06/24/2017 17:01 Labor Evaluation Frequency: 0 Monitor Mode: External Pattern: Normal: <= 5 Contractions in 10 Minutes Resting Tone [place]: Relaxed Heart Rate FHR Baseline Rate: 135 Monitor Mode: External US Variability: Moderate 6-25 bpm Accelerations: 10X10 Decelerations: None Category: Category I Pain Assessment Pain Scale: 0 Pain Presence: None/Denies Pain Type: N/A Pain Goal: 3 Pain Relief Measures: Comfort Measures Datetime: 06/24/2017 15:59 Stage of : OB Triage Assessment Type: Triage Maternal Assessment Level of Consciousness: Fully Conscious DTR's/Clonus: DTRs 2+; No Clonus Headache: Denies Blurred Vision: No Respiratory Effort: Unlabored; Regular Rhythm; Equal Expansion Breath Sounds, Left: Clear and Equal Breath Sounds, Right: Clear and Equal Nausea/Vomiting: Denies RUQ Epigastric Pain: Denies Facial Edema: None Temperature Route: Axillary Fall Risk Assessment History of Falling: (0) No Secondary Diagnosis: (0) No Ambulatory Aid: (0) Bedrest/Nurse Assist IV Therapy: (0) No Gait: (0) Normal/Bedrest/Immobile Mental Status: (0) Oriented to Own Ability Fall Score: 0 Fall Risk Score Definition: No Risk: No action required Labor Evaluation Frequency: 0 Monitor Mode: External Pattern: Normal: <= 5 Contractions in 10 Minutes Resting Tone [place]: Relaxed Heart Rate FHR Baseline Rate: 145 Monitor Mode: External US Variability: Moderate 6-25 bpm Decelerations: None Category: Category I Pain Assessment Pain Scale: 0 Pain Presence: None/Denies Pain Type: N/A Pain Goal: 3 Pain Relief Measures: Comfort Measures Datetime: 06/24/2017 15:58 Time of Arrival: 06/24/2017 15:08 EGA: 37.0 Arrived By: Ambulatory Arrived From: Home Chief Complaint: BIWEEKLY NST/BPP FOR PIH Movement: Present Contractions: Denies/Absent Rupture of Membranes: Denies Vaginal Bleeding: None Vaginal Discharge: Denies Recent Sexual Intercouse: Denies Abdominal Trauma: Not Applicable Patient Complaints: None Time Provider Notified: 06/24/2017 18:00 Provider Notified: FOROOHAR Initial Plan: MONITOR, BPP NST Datetime: 06/18/2017 21:51 Stage of : OB Triage Labor Evaluation Frequency: 0 Monitor Mode: External Resting Tone [place]: Relaxed Heart Rate FHR Baseline Rate: 130 Monitor Mode: External US Variability: Moderate 6-25 bpm Accelerations: 15X15 Decelerations: None Category: Category I Datetime: 06/18/2017 21:30 Labor Evaluation Frequency: 0 Monitor Mode: External Resting Tone [place]: Relaxed Heart Rate FHR Baseline Rate: 120 Monitor Mode: External US Variability: Moderate 6-25 bpm Accelerations: 15X15 Decelerations: None Category: Category I Datetime: 06/18/2017 20:43 Stage of : OB Triage Monitor Mode: External Monitor Mode: External US Datetime: 06/18/2017 20:21 Stage of : OB Triage Datetime: 06/18/2017 20:15 Stage of : OB Triage Datetime: 06/18/2017 19:20 Stage of : OB Triage Monitor Mode: External US Datetime: 06/18/2017 18:47 Stage of : OB Triage Datetime: 06/18/2017 18:15 Stage of : OB Triage Maternal Assessment Level of Consciousness: Fully Conscious DTR's/Clonus: DTRs 2+; No Clonus Headache: Denies Blurred Vision: No Respiratory Effort: Unlabored; Regular Rhythm; Equal Expansion Breath Sounds, Left: Clear and Equal Breath Sounds, Right: Clear and Equal Nausea/Vomiting: Denies RUQ Epigastric Pain: Denies Facial Edema: None Temperature Route: Oral Fall Risk Assessment History of Falling: (0) No Secondary Diagnosis: (0) No Ambulatory Aid: (0) Bedrest/Nurse Assist IV Therapy: (0) No Gait: (0) Normal/Bedrest/Immobile Mental Status: (0) Oriented to Own Ability Fall Score: 0 Fall Risk Score Definition: No Risk: No action required Datetime: 06/18/2017 18:13 Time of Arrival: 06/18/2017 18:00 EGA: 36.1 Arrived By: Ambulatory Arrived From: Home Chief Complaint: L leg swelling, HBP, high alk phos, Movement: Present Contractions: Denies/Absent Rupture of Membranes: Denies Vaginal Bleeding: None Vaginal Discharge: Denies Recent Sexual Intercouse: Denies Abdominal Trauma: Not Applicable Patient Complaints: None Initial Plan: VS, EFM, PIH PANEL, UA, BILATERAL VENOUS DOPPLER LE AND UE Datetime: 06/10/2017 16:14 Fall Score: 0 Fall Risk Score Definition: No Risk: No action required Datetime: 06/10/2017 16:08 EGA: 35.0 Datetime: 05/23/2017 19:21 EGA: 32.3 Datetime: 05/23/2017 17:14 Fall Score: 0 Fall Risk Score Definition: No Risk: No action required Datetime: 04/26/2017 12:52 EGA: 32.3 Datetime: 04/26/2017 12:03 EGA: 28.4 Fall Score: 0 Fall Risk Score Definition: No Risk: No action required
== END 2017-06-24 18:30 | disposition home or self-care (01) ==
LOC: OBT 15:14 → L-D 15:14 → OBT 18:30
PROVIDERS: ATTEND Obstetrics & Gynecology
DX: O26.893 Other specified pregnancy related conditions, third trimester (principal); Z3A.37 37 weeks gestation of pregnancy; R74.8 Abnormal levels of other serum enzymes
CPT/HCPCS: 76818; Z7500; G0463

== ENCOUNTER 2017-06-30 10:50 | Emergency (ER) | payer BC ==
[~2017-06-30] VITALS: Ht 175.3 cm; Wt 93.0 kg
[~2017-06-30 10:50] MED LIST changes: -LIDO30CR3 TP
[2017-06-30 10:52] VITALS: Ht 175.3 cm; Wt 93.0 kg
[2017-06-30] MEDS ORDERED: AMOX500C2 PO (11:44)
[2017-06-30] MEDS ORDERED: ACET-141 PO (11:45)
--- NOTE | 2017-06-30 12:12 | ERD ---
ER Documentation Chief Complaint Date/Time DATE: 06/30/17 TIME: 12:10 Chief Complaint left ear pain started last night, 39 weeks no contractions HPI This is a 32-year-old male presents now with left ear pain that started last night. Patient has had a cough for the last week.. Pain is severe and constant , she took Tylenol however it did not work. Patient is currently 39 weeks , she denies any pelvic pain, cramping, discharge, contractions. She denies any vaginal bleeding. A0. ROS 12 point review of systems was done, all negative except per HPI. Medications Home Meds Active Scripts Acetaminophen* (Acetaminophen*) 500 MG Extra Strength Tablet, 500 MG PO Q4H Y for PAIN AND OR ELEVATED TEMP for 3 Days, TAB Prov:MYRIAM FOWLER 06/30/17 Amoxicillin* (Amoxicillin*) 500 Mg Cap, 500 MG PO TID for 7 Days, CAP Prov:MYRIAM FOWLER 06/30/17 Reported Medications Ferrous Sulfate* (Ferrous Sulfate*) 325 Mg Tabec, 325 MG PO DAILY, TAB 06/10/17 Vit-Fe Fumarate-FA* (Milton Tablet*) 1 Tab Tablet, 1 TAB PO DAILY, TAB 08/22/14 Discontinued Scripts Lidocaine (Lmx 5) 30 Gm Cream.gm., 30 GM TP DAILY, #1 Prov:RANDY MORRISSEY PA-C 06/23/17 Allergies Allergies: Coded Allergies: No Known Allergy (Verified , 06/23/17) PMhx/Soc History of Surgery: No Anesthesia Reaction: No Hx Neurological Disorder: No Hx Respiratory Disorders: No Hx Cardiac Disorders: No Hx Psychiatric Problems: No Hx Miscellaneous Medical Probl: No Hx Alcohol Use: No Hx Substance Use: No Hx Tobacco Use: No Physical Exam Vitals Vital Signs Date Time Temp Pulse Resp B/P Pulse Ox O2 Delivery O2 Flow Rate FiO2 06/30/17 10:52 98.1 100 20 157/75 97 Physical Exam GENERAL: The patient is well-developed, well-nourished, in no acute distress. NECK: Cervical spine is non tender with no step off. Supple, no nuchal rigidity HEENT: Atraumatic. Pupils equal, round and reactive to light. Extraocular muscles are grossly intact. Conjunctivae pink, no discharge. Bilateral erythematous TMs, no TM bulging no TM perforation. Tonsilar erythema with no exudates or uvular deviation. Clear rhinorrhea. RESPIRATORY: Clear to auscultation bilaterally. There are no rales, wheezes or rhonchi. HEART: Regular rate and rhythm. No murmurs, clicks, rubs or gallops. EXTREMITIES: No clubbing or cyanosis. Full range of motion. Grossly neurovascularly intact. NEUROLOGIC: Alert and oriented. Cranial nerves II through XII are intact. SKIN: There is no rash. The skin is warm and dry. Procedures/MDM This is a 32-year-old female presents to the ER for ear pain, she does have otitis media this is likely secondary to upper respiratory infection. At this time patient is afebrile and extremely well-appearing. Patient is currently 39 weeks however has no pelvic or vaginal complaints. Her has been normal up to this point. Patient will be sent home with amoxicillin and Tylenol. She is to follow-up with her primary care doctor within 1-2 days or return to ER sooner if symptoms worsen. My medical decision making shared with the patient she understands and agrees with plan. Departure Diagnosis: Primary Impression: Otitis media Condition: Stable Patient Instructions: Otitis Media, Abx Tx [Child] Additional Instructions: Call your primary care doctor TOMORROW for an appointment during the next 1-2 days.See the doctor sooner or return here if your condition worsens before your appointment time. MYRIAM FOWLER Jun 30, 2017 12:12
== END 2017-06-30 12:21 | disposition home or self-care (01) ==
LOC: FTE 10:50
DX: O99.89 Other specified diseases and conditions complicating pregnancy, childbirth and the puerperium (principal); H66.92 Otitis media, unspecified, left ear; Z3A.39 39 weeks gestation of pregnancy
CPT/HCPCS: 99283

== ENCOUNTER 2017-07-06 13:11 | Inpatient (IN) | payer BC ==
[~2017-07-06] VITALS: Ht 175.3 cm; Wt 95.3 kg
[~2017-07-06 13:11] MED LIST changes: +ACET-141 PO; +AMO500 PO
[2017-07-06 14:10] VITALS: BP 138/75; PULSE 80; RESP 20; Ht 175.3 cm; Wt 95.3 kg
[2017-07-06] MEDS ORDERED: CEFAZOLIN 2 GM/50 ML (PMX) 50 ML IV SCH (14:30)
[2017-07-06] MEDS ORDERED: METHYLERGONOVINE 0.2 MG INJ IM PRN ×2 (14:30→21:30)
[2017-07-06] MEDS ORDERED: OXYTOCIN 30 UNITS/LR 500 ML IV PRN ×2 (14:30→21:30)
[2017-07-06] MEDS ORDERED: CARBOPROST 250 MCG INJ IM PRN ×2 (14:30→21:30)
[2017-07-06] MEDS ORDERED: MISOPROSTOL 200 MCG TAB PR PRN ×2 (14:30→21:30)
[2017-07-06] MEDS ORDERED: OXYTOCIN 30 UNITS/LR 500 ML IV SCH (14:30)
[2017-07-06] MEDS: LACTATED RINGER'S 1,000 ML IV SCH ×3 (14:33→21:01)
[2017-07-06 15:00] LABS: BASOPHILS % 0.4 % (0.0-2.0); EOSINOPHILS # 0.3 10^3/ul (0.0-0.5); EOSINOPHILS % 2.7 % (0.0-7.0); HEMATOCRIT 37.7 % (37.0-47.0); HEMOGLOBIN 12.4 g/dl (12.0-16.0); LYMPHOCYTES # 1.9 10^3/ul (0.8-2.9); LYMPHOCYTES % 19.6 % (15.0-51.0); MEAN CORPUSCULAR HEMOGLOBIN 30.2 pg (29.0-33.0); MEAN CORPUSCULAR HGB CONC 32.9 g/dl (32.0-37.0); MEAN PLATELET VOLUME 12.4 fl (7.4-10.4); MONOCYTE # 0.7 10^3/ul (0.3-0.9); MONOCYTES % 7.6 % (0.0-11.0); NEUTROPHILS % 68.1 % (39.0-77.0); PLATELET COUNT 217 10^3/UL (140-415); RED CELL DISTRIBUTION WIDTH 13.3 % (11.5-14.5); WHITE BLOOD COUNT 9.5 10^3/ul (4.8-10.8)
[2017-07-06 15:50] LABS: INR 0.91; PROTIME 12.2 Sec (12.2-14.2)
[2017-07-06 15:51] LABS: PARTIAL THROMBOPLASTIN TIME 28.7 Sec (25.0-35.0)
[2017-07-06 15:52] LABS: ALBUMIN 3.6 g/dl (3.3-4.9); ALBUMIN/GLOBULIN RATIO 1.02; BILIRUBIN,INDIRECT 0.1 mg/dl (0-1.1); BILIRUBIN,TOTAL 0.1 mg/dl (0.2-1.3); CALCIUM 10.2 mg/dl (8.4-10.2); CREATININE 0.54 mg/dl (0.44-1.00); POTASSIUM 3.8 mmol/L (3.5-5.1); TOTAL PROTEIN 7.1 g/dl (6.1-8.1); URIC ACID 4.6 mg/dl (3.1-7.9)
[2017-07-06] MEDS ORDERED: FENTAnyl 50 MCG/ML VIAL ONE (19:56)
[2017-07-06] MEDS ORDERED: morphine SULFATE/PF (10 MG/10 ML) INJ ONE (19:56)
[2017-07-06] MEDS ORDERED: PHENYLephrine (100 MCG/ML) 5ML SYG ONE (20:05)
[2017-07-06] MEDS ORDERED: DEXAMETHASONE 4 MG/ML 1 ML INJ ONE (20:08)
[2017-07-06] MEDS ORDERED: OXYTOCIN 30 UNITS/LR 500 ML IV ONE (20:08)
[2017-07-06] MEDS ORDERED: DIPHENHYDRAMINE 50 MG INJ IV PRN (20:30)
[2017-07-06] MEDS ORDERED: HYDROmorphONE 1 MG/ML SYG IV PRN ×2 (20:30)
[2017-07-06] MEDS ORDERED: ONDANSETRON 4 MG INJ IV PRN (20:30)
[2017-07-06] MEDS ORDERED: ZOLPIDEM 5 MG TAB PO PRN (20:30)
[2017-07-06] MEDS ORDERED: NALOXONE (0.4 MG/ML) INJ IV PRN (20:30)
[2017-07-06] MEDS ORDERED: ONDANSETRON 4 MG INJ ONE (20:40)
--- NOTE | 2017-07-06 21:01 | SIPON ---
Date/Time of Note Date/Time of Note DATE: 07/06/17 TIME: 20:58 Operative Report Preoperative Diagnosis Intrauterine at 38 weeks and 5 days gestational age previous C- section 1 low ELÍAS desires elective repeat delivery declined Postoperative Diagnosis Same Operation/Procedure Performed Repeat low transverse delivery Surgeon: MARIBETH COON MD medical office receptionist assistant: ROSALINE COREAS MD Anesthesia Type: spinal Estimated Blood Loss: other (500) Transfusion Required: no Specimen: none Grafts/Implants: none Complications: no MARIBETH COON MD Jul 06, 2017 21:01
[2017-07-06] MEDS ORDERED: LANOLIN 7 GM TUBE TOP PRN (21:30)
[2017-07-06] MEDS ORDERED: MEPERIDINE 25 MG INJ IV ONE (21:30)
[2017-07-06] MEDS: CEFAZOLIN 2 GM/50 ML (PMX) 50 ML IV SCH (21:31)
--- NOTE | 2017-07-06 22:21 | PREOPHP ---
DATE OF ADMISSION: 07/06/2017 HISTORY OF PRESENT ILLNESS: The patient is a 32-year-old, 7, para 4, EDC is 07/15/2017, intrauterine at 38 weeks and 5 days gestational age, who was sent from Dr. Mahoney's office for delivery secondary to axillary growth, decreased amniotic fluid, ventricular disproportion and increased blood flow to the brain. The patient denies any contractions, vaginal bleeding or discharge. The patient has a history of 1 previous and desires elective repeat delivery. The patient declined a tubal sterilization. Her care took place at [facility]. PAST MEDICAL HISTORY: None. MEDICATIONS: vitamins. PAST SURGICAL HISTORY: 1. One previous . 2. Heart surgery at age of 1, due to a heart murmur. OBSTETRIC HISTORY: Times 3 vaginal deliveries, x1 . GYNECOLOGIC HISTORY: . Denies any sexually transmitted disease. Sexually active with 1 partner. SOCIAL HISTORY: Denies any smoking, drugs, or alcohol. FAMILY HISTORY: None. REVIEW OF SYSTEMS: All within normal except history of present illness. PHYSICAL EXAMINATION: HEENT: Within normal. LUNGS: CTA bilaterally. CARDIAC: S1, S2. Regular rate and rhythm. ABDOMEN: Gravid and nontender. Negative CVA bilateral. EXTREMITIES: Negative for edema or calf tenderness. VAGINAL: Deferred. ASSESSMENT: A 32-year-old 7, para 4, intrauterine at 38 weeks and 5 days gestational age, previous section x1. Desires elective repeat delivery. Declines vaginal after . PLAN: Consent for repeat delivery. Risks, benefits, alternatives and all questions were answered. Dictated By: Elvin Hernandez MD /jordan/colleen /Document#: [id number]
[2017-07-07] VITALS: BP 138/78; PULSE 89; RESP 20
[2017-07-07] MEDS: KETOROLAC 30 MG INJ IV PRN ×2 (00:07→10:23)
[2017-07-07 04:10] VITALS: BP 118/62; PULSE 89; RESP 22
[2017-07-07] MEDS: CEFAZOLIN 2 GM/50 ML (PMX) 50 ML IV SCH ×2 (05:55→13:18)
[2017-07-07] MEDS: LACTATED RINGER'S 1,000 ML IV SCH ×3 (06:53→21:01)
--- NOTE | 2017-07-07 07:50 | QN ---
Documentation Comment This note postoperative day 1 She is seen and evaluated awake alert oriented 3 Sanchez clear Tolerating diet Total signs stable afebrile Abdomen soft nontender uterine fundus at umbilicus using clean Extremity negative edema no tenderness Assessment status post repeat delivery postop day 1 Stable afebrile Plan: Follow-up CBC Encourage ambulation MARIBETH COON MD Jul 07, 2017 07:50
[2017-07-07 08:00] VITALS: BP 128/67; PULSE 72; RESP 17
[2017-07-07] MEDS: SENNA/DOCUSATE NA (8.6MG/50MG) TAB PO SCH ×2 (09:13→20:31)
[2017-07-07 10:23] LABS: BASOPHILS % 0.2 % (0.0-2.0); EOSINOPHILS % 0.1 % (0.0-7.0); HEMATOCRIT 31.5 % (37.0-47.0); HEMOGLOBIN 10.6 g/dl (12.0-16.0); LYMPHOCYTES # 1.6 10^3/ul (0.8-2.9); LYMPHOCYTES % 11.3 % (15.0-51.0); MEAN CORPUSCULAR HEMOGLOBIN 31.4 pg (29.0-33.0); MEAN CORPUSCULAR HGB CONC 33.7 g/dl (32.0-37.0); MEAN CORPUSCULAR VOLUME 93.2 fl (82.0-101.0); MEAN PLATELET VOLUME 12.1 fl (7.4-10.4); MONOCYTE # 0.7 10^3/ul (0.3-0.9); MONOCYTES % 4.6 % (0.0-11.0); NEUTROPHILS % 82.9 % (39.0-77.0); PLATELET COUNT 197 10^3/UL (140-415); RED BLOOD COUNT 3.38 10^6/ul (4.20-5.40); RED CELL DISTRIBUTION WIDTH 12.9 % (11.5-14.5); WHITE BLOOD COUNT 14.3 10^3/ul (4.8-10.8)
[2017-07-07 12:00] VITALS: BP 115/66; RESP 17
[2017-07-07] MEDS: GUAIFENESIN/DM 5ML CUP PO PRN ×2 (12:23→20:32)
--- NOTE | 2017-07-07 16:07 | OPR ---
DATE OF OPERATION: 07/07/2017 PRIMARY DIAGNOSIS: A 32-year-old, 7, para 4, intrauterine at 38 weeks and 5 days gestational age. Previous x1. Low ELÍAS, desires elective repeat delivery. Declined . POSTOPERATIVE DIAGNOSIS: Intrauterine at 38 weeks and 5 days gestational age. Previous x1. Low ELÍAS, desires elective repeat section. Declined . OPERATIVE PROCEDURE: Repeat low transverse delivery. SURGEON: Dr. Elvin Hernandez. CLIENT EVALUATOR: Dr. Klaus Whipple. ANESTHESIA: Spinal. ESTIMATED BLOOD LOSS: 500 mL. FINDINGS: A viable male, 9, 9 respectively at 1 and 5 minutes, weight 8 pounds 1 ounce. Normal uterus, tubes, and ovaries. PROCEDURE: After explaining the risks, benefits and alternatives, the patient consented and signed chart. The patient was taken to the operating room where spinal anesthesia was found to be adequate. She was then prepared and draped in a normal sterile fashion in the dorsal supine position with a leftward tilt. A Pfannenstiel skin incision was then made with a scalpel and carried to the underlying fascia. The fascia was incised in the midline. The incision was extended laterally with Ayala scissors. The superior aspect of fascial incision was grasped with Ronda clamps, elevated, and the underlying rectus muscles dissected off bluntly. Attention was then turned to the inferior aspect incision which in similar fashion was grasped, tented up with Ronda clamps, and rectus muscles dissected off bluntly. The rectus muscle and the rectus muscles were then in midline and peritoneum identified, tented up, entered sharply with Metzenbaum scissors. The peritoneal incision was extended superiorly and good visualization of the bladder. The bladder blade was then inserted and the perineum identified, grasped with pickups, entered sharply with Metzenbaum scissors. This incision was extended laterally and the bladder flap created digitally. The bladder blade was then reinserted. Lower segment incised in a transverse fashion with the scalpel. The incision was extended laterally. The bladder blade was removed and the 's head delivered atraumatically. The nose and mouth were suctioned. Cord clamped and cut. The was handed off to the waiting manager regional. The placenta was then removed. The uterus was then cleared of all clots and debris. The uterine incision was repaired with 1-0 Chromic in a running, locked fashion. A 2nd layer of the same suture was used for imbrication to obtain excellent hemostasis. The uterus was then returned to the abdomen. The gutters were cleared of all clots. The peritoneum, rectus, and abdominal muscles were reapproximated with 3-0 Vicryl in interrupted fashion. The fascia was reapproximated with 0 Vicryl in a running fashion. The subcutaneous tissue was reapproximated 2-0 plain gut in a running fashion. The skin was closed with laney. The patient tolerated the procedure well. Sponge, lap, needle counts were correct x2. The patient was taken recovery room in stable condition. Dictated By: Elvin Hernandez MD /[email or web address]/charles /Document#: [id number]
[2017-07-07 16:15] VITALS: BP 101/61; PULSE 54; RESP 16
[2017-07-07] MEDS ORDERED: OXYCODONE/ACETAMINOPHEN (5/325) TAB PO PRN (19:58)
[2017-07-07 20:00] VITALS: BP 124/69; PULSE 76; RESP 20
[2017-07-07] MEDS: OXYCODONE/ACETAMINOPHEN (5/325) TAB PO PRN (20:31)
[2017-07-08] MEDS: IBUPROFEN 600 MG TAB PO SCH ×5 (00:21→23:37)
[2017-07-08 04:20] VITALS: BP 123/60; PULSE 59; RESP 18
[2017-07-08] MEDS: LACTATED RINGER'S 1,000 ML IV SCH (05:01)
[2017-07-08 08:15] VITALS: BP 140/77; PULSE 72; RESP 18
[2017-07-08] MEDS: GUAIFENESIN/DM 5ML CUP PO PRN ×2 (08:51→23:37)
[2017-07-08] MEDS: OXYCODONE/ACETAMINOPHEN (5/325) TAB PO PRN (08:52)
[2017-07-08] MEDS: SENNA/DOCUSATE NA (8.6MG/50MG) TAB PO SCH ×2 (08:52→21:22)
[2017-07-08 16:00] VITALS: BP 134/63; PULSE 68; RESP 16
[2017-07-08 19:30] VITALS: BP 136/50; PULSE 77; RESP 20
--- NOTE | 2017-07-08 20:17 | QN ---
Documentation Comment Progress note postop day 2 No complaints positive ambulation tolerating diet positive flatulence positive voiding Vital signs stable afebrile Abdomen soft nontender negative distention incision clean dry intact Extremity negative edema no calf tenderness Assessment status post repeat low transverse delivery postop day 2 stable afebrile Plan iron supplement continue present management MARIBETH COON MD Jul 08, 2017 20:17
[2017-07-08] MEDS: FERROUS SULFATE (EC) 325 MG TAB PO SCH (21:22)
[2017-07-09 03:38] VITALS: BP 110/70; PULSE 69; RESP 18
[2017-07-09] MEDS: IBUPROFEN 600 MG TAB PO SCH ×4 (05:54→23:14)
[2017-07-09] MEDS: GUAIFENESIN/DM 5ML CUP PO PRN (06:00)
[2017-07-09 07:40] VITALS: BP 125/74; PULSE 70; RESP 19
[2017-07-09] MEDS: FERROUS SULFATE (EC) 325 MG TAB PO SCH ×2 (09:57→21:08)
[2017-07-09] MEDS: SENNA/DOCUSATE NA (8.6MG/50MG) TAB PO SCH ×2 (09:57→21:08)
[2017-07-09 15:49] VITALS: BP 120/73; PULSE 73; RESP 19
--- NOTE | 2017-07-09 17:46 | QN ---
Documentation Comment Progress note postop day 3 patient seen and evaluated awake alert oriented 3 positive granulation type diet positive flatulence positive bowel movement denies any headache nausea vomiting shortness of breath or visual changes Vital signs stable afebrile Lungs CTA bilateral CVS S1-S2 regular rhythm Abdomen soft nontender uterine fundus below umbilicus incision clean dry and intact positive laney Extremity negative edema no calf tenderness Assessment status post repeat transverse delivery postop day 3 stable afebrile Plan discharge home tomorrow follow-up in the office Wednesday to remove laney MARIBETH COON MD Jul 09, 2017 17:46
--- NOTE | 2017-07-09 17:47 | PD.PPDC ---
DIRECTOR OF VITAL STATISTICS Discharge Instruction Condition Patient Condition: Good Diet Diet: Resume Regular Diet Activity/Restrictions Activity: Normal Activity May Shower Restrictions: No Exercising No Lifting No Driving No Sexual Activity Nothing in the Vagina No Tangent No Tampons, douche Follow-up Follow-up with Physician: 3, Day/Days Provider Information: To remove laney Return to clinic for [facility] Instructions: Fever greater than 101 Chills Worsening abdominal pain Excessive Vaginal Bleeding More than 2 pads per hour Unable to tolerate diet OB Instructions: Breast Tenderness Depression Blurried Vision Headache Surgical Instructions: Incisional Drainage Incisional Redness MARIBETH COON MD Jul 09, 2017 17:47
[2017-07-09 19:32] VITALS: BP 150/67; PULSE 64; RESP 21
[2017-07-10 04:10] VITALS: BP 123/70; PULSE 67; RESP 20
[2017-07-10] MEDS: IBUPROFEN 600 MG TAB PO SCH (05:26)
[2017-07-10 08:00] VITALS: BP 140/70; PULSE 59; RESP 18
--- NOTE | 2017-07-10 09:27 | DS ---
DATE OF ADMISSION: 07/06/2017 DATE OF DISCHARGE: 07/10/2017 PRIMARY DIAGNOSES: A 32-year-old, 7, para 4, intrauterine at 38 weeks and 5 days' gestational age, previous x1, low ELÍAS, desires elective repeat delivery, declined vaginal after (). PROCEDURE: Repeat low transverse delivery. DISCHARGE CONDITION: Stable. DISCHARGE INSTRUCTIONS: Activity: None per vaginal. No heavy lifting x6 weeks. Diet regular. DISCHARGE MEDICATIONS: 1. Motrin. 2. Percocet. 3. Iron. 4. Colace. DISCHARGE SUMMARY: Ms. Alissa Taylor is a 32-year-old, 7, para 5, status post repeat low transverse delivery on 07/07/2017. She had a viable male, Apgars 9 and 9 respectively at one and five minutes, weight 8 pounds 1 ounce. She had a uneventful postoperative day 1, 2, and 3. She will be discharged on postoperative day 4. Her incision is clean, dry, and intact. . She will follow up in the office on 2-3 days to remove her laney. Dictated By: Elvin Hernandez MD /[email or web address]/keagan /Document#: [id number]
[2017-07-10] MEDS: SENNA/DOCUSATE NA (8.6MG/50MG) TAB PO SCH (09:54)
[2017-07-10] MEDS: OXYCODONE/ACETAMINOPHEN (5/325) TAB PO PRN (09:55)
[2017-07-10] MEDS: FERROUS SULFATE (EC) 325 MG TAB PO SCH (09:56)
== END 2017-07-10 11:00 | disposition home or self-care (01) | DRG 766 ==
LOC: OBT 13:11 → L-D 13:12 → OBT 13:12 → L-D 13:34 → PP1 23:57 → EDSTATUS 07-15 13:33
PROVIDERS: ADMIT Obstetrics & Gynecology; ATTEND Obstetrics & Gynecology
PROC: 3E033VJ Introduction of Other Hormone into Peripheral Vein, Percutaneous Approach (ICD-10-PCS; 2017-07-06)
PROC: 10D00Z1 Extraction of Products of Conception, Low, Open Approach (ICD-10-PCS; principal; 2017-07-06 19:00)
DX: O34.211 Maternal care for low transverse scar from previous cesarean delivery (principal); Z37.0 Single live birth; Z3A.38 38 weeks gestation of pregnancy
CPT/HCPCS: 80053; 84560; 85025; 85610; 85730; 86592; 86703; 86803; 86850; 86900; 86901; 86920; 87340; 94760; 99464; J0690; J1100; J1200; J1885; J2175; J2274; J2370; J2405; J2590; J3010; J7120

== ENCOUNTER 2017-11-03 18:51 | Emergency (ER) | END 2017-11-03 20:40 | disposition home or self-care (01) ==

== ENCOUNTER 2018-03-03 09:25 | Emergency (ER) | END 2018-03-03 13:15 | disposition home or self-care (01) ==